=== PATIENT | female | born 1940 | race Caucasian/White ===

== ENCOUNTER 2016-08-03 23:59 | Inpatient (IN) | payer MEDICARE, OTHER ==
--- NOTE | ~2016-08-03 | CN ---
Consultation Report [facility] [address] [place]. [address] NAME: LIANA BRYANT : 42 STATUS : ADM IN PAT#: [id number] AGE: 76 ADM/REG DATE : 08/04/16 MR#: [id number] REPORT SERV DATE: 08/05/16 DICTATED BY: ALBARO SALAS DATE: 08/05/16 REPORT STATUS : Draft TRANSCRIBED BY: CHIQUI DATE: 08/05/16 CONSULTATION DATE OF CONSULTATION: REASON FOR CONSULTATION: Mrs. Liana Bryant is a 76-year-old female, who is referred for abnormal EKG and left ventricular dysfunction. CVD PHYSICIAN: Harman Carter M.D. HISTORY OF PRESENT ILLNESS: Mrs. Liana Bryant several days ago noted she was more short of breath. This is not accompanied with weight change or lower extremity edema. She also had significant back pain which also appears to be a main reason for discomfort. She called her niece, and they brought her to the emergency room. At the present time, she is laying flat with no complaints and no shortness of breath. REVIEW OF SYSTEMS: During this time, she has had no chest pain or chest discomfort. She has had no palpitations, syncope, or presyncope. She is in no change in weight. She has no AICD discharges. Rest is negative. PAST MEDICAL HISTORY: 1. Status post AICD placement. 2. Nonischemic cardiomyopathy with known coronary artery disease on cardiac catheterization in 2005. At that time, ejection fraction was catheter was calculated 20%. Recent echocardiogram shows calculated ejection fraction of 30%, but with wall motion abnormalities. 3. Paroxysmal atrial fibrillation, not on anticoagulation secondary to history of bleed requiring transfusion. 4. Hypertension, longstanding. 5. Carotid artery stenosis, followed by Dr. Ruelas with a stent placed in 2012. SOCIAL HISTORY: She has a strong family support. She lives in [facility] and has several nieces and nephews to take care of her. She does not drink or smoke. FAMILY HISTORY: Negative for early heart disease. PHYSICAL EXAMINATION: VITAL SIGNS: Blood pressure is 146/72 and pulse is 82. GENERAL: She is resting comfortably at this time. Nutritional status appears adequate. EYES: PERRLA. LUNGS: No labored use of accessory muscles. Without rales or wheezes. COR: PMI is not displaced. No thrills or heaves. NL S1 and S2. No S3, murmur, click or rub. Consultation Report [facility] [address] [place]. [address] NAME: LIANA BRYANT : 42 STATUS : ADM IN PAT#: [id number] AGE: 76 ADM/REG DATE : 08/04/16 MR#: [id number] REPORT SERV DATE: 08/05/16 DICTATED BY: ALBARO SALAS DATE: 08/05/16 REPORT STATUS : Draft TRANSCRIBED BY: CHIQUI DATE: 08/05/16 PULSES: Carotids without bruits. ABD: +BS, nontender. EXT: No cyanosis, clubbing or edema. SKIN: No petechiae. NEURO: Alert and oriented. Does not appear anxious or depressed. LABORATORY EVALUATION: Troponin is 0.04. BNP is mildly elevated at 760 on admission. Renal function is normal at 0.3. Potassium is balanced at 3.8. Hematocrit is balanced at 33. EKG shows LVH with repolarization abnormalities. ASSESSMENT: 1. EKG changes consistent with left ventricle hypertrophy without evidence of chest pain or chest discomfort. We would follow serially. 2. Nonischemic cardiomyopathy. No evidence of ongoing ischemia at this time. We would follow clinically. For general notation, she appears cachectic with significant weight loss. 3. Left ventricular dysfunction, currently compensated. LENIN/CHIQUI Albaro Salas M.D. / [id number] CC: Elie Mitchell II, MD NONE
--- NOTE | ~2016-08-03 | HP ---
History And Physical [facility] [address] [place]. [address] NAME: BERTHA BRYANT : 42 STATUS : REG ER PAT#: [id number] AGE: 76 ADM/REG DATE : 08/03/16 MR#: [id number] REPORT SERV DATE: 08/04/16 DICTATED BY: SASCHA PORTILLO DATE: 08/04/16 REPORT STATUS : Draft TRANSCRIBED BY: MODL DATE: 08/04/16 DATE OF ADMISSION: 08/03/2016 POINT OF ENTRY: [facility] Emergency Department. PRIMARY CARE PHYSICIAN: Marcos Nath M.D. CHIEF COMPLAINT: Shortness of breath. HISTORY OF PRESENT ILLNESS: Ms Bryant is a 76-year-old female with a history of chronic systolic congestive heart failure with an ejection fraction of 45%, chronic hyponatremia, atrial fibrillation on anticoagulation, and other medical comorbidities, who was brought to the emergency room today by EMS for reports of shortness of breath. Unfortunately, the patient is a very poor historian secondary to either underlying dementia or altered mental status, and no family is available at bedside. I was unable to reach any family members using the phone numbers provided in [employer]. According to the ER physician as well as EMS history, EMS was activated for two-hour history of shortness of breath. The patient currently denies any complaints including chest pain, palpitations, shortness of breath, abdominal pain, nausea, vomiting, or diarrhea. Initial evaluation in the emergency department is notable for a chest x-ray that showed some intravascular volume overload with very small bilateral pleural effusions. BNP was elevated at 760. Remainder of labs were unremarkable except for urinalysis concerning for possible urinary tract infection. She was given a dose of Lasix as well as IV Rocephin and admitted to the Hospitalist Service. REVIEW OF SYSTEMS: Comprehensive review of systems unable to be obtained secondary to the patient's altered mental status. PREVIOUS MEDICAL HISTORY: 1. Chronic systolic congestive heart failure with an ejection fraction of 45%. 2. Chronic hyponatremia. 3. Peripheral arterial disease. 4. Atrial fibrillation, on anticoagulation. 5. Pacemaker insertion. 6. History of stroke. PAST SURGICAL HISTORY: 1. Left hip ORIF. 2. Pacemaker AICD insertion. ALLERGIES: TO MORPHINE. HOME MEDICATIONS: History And Physical [facility] [id number] [place]. [address] NAME: BERTHA BRYANT : 42 STATUS : REG ER PAT#: [id number] AGE: 76 ADM/REG DATE : 08/03/16 MR#: [id number] REPORT SERV DATE: 08/04/16 DICTATED BY: SASCHA PORTILLO DATE: 08/04/16 REPORT STATUS : Draft TRANSCRIBED BY: MODElie DATE: 08/04/16 1. Aspirin 81 mg daily. 2. Atorvastatin 40 mg daily. 3. Carvedilol 3.125 mg b.i.d. 4. Lisinopril 20 mg daily. SOCIAL HISTORY: Denies any tobacco, alcohol, or illicits. It is unclear as to who the patient lives with at this time. FAMILY HISTORY: Notable for stroke. LABS AND IMAGIN. White count is 8.9, hemoglobin is 12.6, hematocrit is 36.3, platelet count is 237, and INR 1.2. 2. Sodium is 128, potassium 4.4, chloride 95, carbon dioxide 27, BUN 14, creatinine 0.30, glucose is 100, calcium is 9.3, and magnesium is 2.0. 3. Troponin is 0.04. BNP is 760. 4. Urinalysis: Spec gravity is 1.017, cloudy with 3 red blood cells with 95 red blood cells per high-power field with 10 epithelial cells, but negative nitrites and negative leukocyte esterase. 5. Chest x-ray per my review shows some cardiomegaly as well as mild intravascular volume overload. 6. EKG per my review shows normal sinus rhythm with occasional PVCs, otherwise no evidence of any acute ischemia or infarction. PHYSICAL EXAMINATION: VITAL SIGNS: Temperature is 97.9 degrees Fahrenheit, pulse is 93, respirations 16, saturating 92% on room air, and blood pressure 159/85. GENERAL: The patient is awake and alert, in no acute distress. Resting comfortably in bed. She is a well-developed, well-nourished elderly female. No family is at bedside. She strongly reeks of urine. HEENT: Atraumatic and normocephalic. Moist mucous membranes. Pupils are equal, round, reactive to light and accommodation. Extraocular eye movements intact. No scleral icterus. NECK: No jugular venous distention. No carotid bruits. CARDIAC: Regular rate and rhythm. No murmurs, rubs, or gallops. Normal S1, S2. LUNGS: Decreased breath sounds in the bases as well as some mild inspiratory rales. ABDOMEN: Soft, nontender, and nondistended with good bowel sounds. No rebound, guarding, or rigidity. EXTREMITIES: Warm and well perfused. No cyanosis, clubbing, or edema. SKIN: Warm and dry. PSYCH: Affect appropriate. NEURO: Alert and oriented x2. She is able to tell me her name as well as location, and she is just slightly off on dates. Cranial nerves 2 through 12 grossly intact. Speech is normal. Gait not assessed. ASSESSMENT AND PLAN: Ms Bryant is a 76-year-old female, who is transferred here for shortness of breath, and found to have evidence of some intravascular volume overload as well as hyponatremia as well as altered mental status and urinary tract infection. History And Physical [address] [address] NAME: BERTHA BRYANT : 42 STATUS : REG ER PAT#: [id number] AGE: 76 ADM/REG DATE : 08/03/16 MR#: [id number] REPORT SERV DATE: 08/04/16 DICTATED BY: SASCHA PORTILLO DATE: 08/04/16 REPORT STATUS : Draft TRANSCRIBED BY: CHIQUI DATE: 08/04/16 PROBLEM LIST: 1. Acute on chronic systolic congestive heart failure. 2. Hyponatremia. 3. Altered mental status. 4. Urinary tract infection. PLAN: 1. Acute on chronic systolic congestive heart failure. The patient's last known echocardiogram is from 2013, which showed mildly impaired LV systolic function. We will place the patient on fluid and sodium restriction as well as IV Lasix for gentle diuresis. 2. Chronic hyponatremia, this is likely due to either SIADH or volume overload from the patient's history of congestive heart failure. We will check urine lytes, serum osms, provide fluid restriction as well as IV Lasix diuresis. 3. Altered mental status likely secondary to hyponatremia as well as urinary tract infection. We are checking other etiologies as well as ammonia level, thyroid function studies, urine drug screen, and vitamin B12 level. 4. Urinary tract infection. The patient does have significant pyuria in her urine sample; however, nitrite and leukocyte esterase was negative, and it was not completely clean catch. We will empirically place the patient on antibiotics and follow up results of urine culture. 5. DVT prophylaxis. Lovenox subcu. CODE STATUS: The patient wished to be full code. RANDY/CHIQUI Sascha Portillo MD / [id number] CC: Marcos Nath M.D.
--- NOTE | ~2016-08-03 | DS ---
Discharge Summary [facility] [address] [place]. [address] NAME: BERTHA BRYANT : 42 STATUS : DIS IN PAT#: [id number] AGE: 76 ADM/REG DATE : 08/04/16 MR#: [id number] REPORT SERV DATE: 08/08/16 DICTATED BY: SASCHA HERNÁNDEZ II DATE: 08/07/16 REPORT STATUS : Draft TRANSCRIBED BY: MODL DATE: 08/07/16 ADMISSION DATE: 08/03/2016 DISCHARGE DATE: 08/07/2016 DISCHARGE DIAGNOSES: 1. Acute on chronic systolic congestive heart failure with ejection fraction of 30%. 2. Urinary tract infection. 3. Hyponatremia, which is chronic. 4. Paroxysmal atrial fibrillation. 5. Severe protein-calorie malnutrition. 6. History of permanent pacemaker. 7. History of stroke. 8. History of peripheral vascular disease. CONSULTS: Harman Carter M.D., with [facility]. BRIEF HISTORY OF PRESENT ILLNESS: The patient is a 76-year-old female with the above history, who presented to [facility] due to shortness of breath and found to be in acute CHF exacerbation. For detailed history and physical examination, please see Dr. Ellison's note from 08/03/2016. HOSPITAL COURSE: On admission, the patient had a BNP of 760, and ABG showed pH of 7.45, pCO2 of 30, PO2 of 78. Chest x-ray showed cardiomegaly with left lung base atelectasis. She also had UTI with a white blood cell count in her urine of 95 and mildly hyponatremic with a sodium of 128 and some slight confusion. For CHF exacerbation she was diuresed and an echocardiogram was done which showed moderately decreased LV systolic function with estimated LVEF of 30% which is decreased from her prior echo of 45%. There is also severe distal anterior and apical hypokinesis which is worsened. Otherwise moderate diastolic dysfunction and moderate pulmonary hypertension were noted. Her EKG also showed some T-wave inversions and mild maybe [address] depressions in the anterolateral leads with a normal troponin and no chest pain. Given her decrease in EF and EKG changes Cardiology was consulted. Dr. Carter evaluated the patient. Given her overall poor physical status, malnutrition, comorbidities and age it was decided to treat her medically. Also the fact that she had a GI bleed and was taken off anticoagulation earlier in the year affected that decision. She had normal coronaries and nonischemic cardiomyopathy in 2005, so Dr. Carter medically optimized the patient by decreasing her amlodipine and increasing her Coreg. She continues on her lisinopril, daily aspirin, and Lasix 20 mg b.i.d. was started. Her urine culture returned positive with E. coli which is pansensitive. She has had four days of Rocephin and will continue for a seven-day course. Regarding her sodium she has been on a fluid restriction and diuresing, and her sodium has actually not moved too much, went up to 130 and back down to 126 which is known to be chronic hyponatremia in her. Dr. Carter has recommended home health heart failure protocol, which has been initiated. At this point, the patient is stable tolerating her medications and ready for discharge. DISCHARGE MEDICATIONS: 1. Aspirin 81 mg p.o. daily. Discharge Summary [address] [address] NAME: BERTHA BRYANT : 42 STATUS : DIS IN PAT#: [id number] AGE: 76 ADM/REG DATE : 08/04/16 MR#: [id number] REPORT SERV DATE: 08/08/16 DICTATED BY: SASCHA HERNÁNDEZ II DATE: 08/07/16 REPORT STATUS : Draft TRANSCRIBED BY: CHIQUI DATE: 08/07/16 2. Lipitor 40 mg p.o. q.h.s. 3. Coreg 6.25 mg p.o. b.i.d. 4. Ferrous sulfate 325 mg p.o. t.i.d. 5. Lisinopril 20 mg p.o. daily. 6. Lasix 20 mg p.o. b.i.d. 7. Protonix 40 mg p.o. daily. 8. Potassium 20 mEq p.o. daily. 9. Duricef 1 g p.o. b.i.d. x3 days. DISCHARGE INSTRUCTIONS: The patient will follow up with Dr. Carter in three to four weeks. DICTATED BY: MD ASUNCION Hugo II/CHIQUI Sascha Hernández II, MD / [id number] CC: Sascha Hernández II, MD
[~2016-08-03 23:59] MED LIST: *UNABLE3; ALEVE220 MG PO; ASAB PO; BISR PO; C5 PO; CAP50 PO; CEFT5 PO; COREG25 PO; COREG3 PO; COUMADIN4 MG PO; DIGITEK0.25 MG PO; DSS PO; ENEMA PR; FERROUS SULF325 M1 PO; KLOR-CON M2020 MEQ PO; L40 PO; LAN125 PO; MOMUD PO; MOTRIN IB200 MG PO; MULTIVIT/MIN PO; MULTIVITAMI1 PO; NORV5 PO; PLAVIX PO; PRIN20 PO; PROTONIX PO; SPIRO25 PO; ULTRAM50 PO; VITC500 PO; ZOCOR20 PO; ZOCOR40 PO
[2016-08-04 00:10] LABS: BASOPHILS 0 %; EOSINOPHILS 0.4 %; EOSINOPHILS ABSOLUTE 0.04 10/3/uL (0.0-0.53); IMMATURE GRANULOCYTES 0.3 %; IMMATURE GRANULOCYTES ABSOLUTE 0.03 10/3/uL (0.0-0.11); LYMPHOCYTES 7.4 %; LYMPHOCYTES ABSOLUTE 0.66 10/3/uL (0.67-4.30); MEAN CORPUS HGB CONC 34.7 g/dL (32.0-36.0); MEAN CORPUSCULAR HEMOGLOB 30.1 pg (26.0-34.0); MEAN PLATELET VOLUME 8.9 fL (9.2-13.0); MONOCYTES 7.8 %; NEUTROPHILS 84.1 %; NEUTROPHILS ABSOLUTE 7.49 10/3/uL (2.02-8.40); PLATELET COUNT 237 10/3/uL (150-400); RED CELL COUNT 4.19 10/6/uL (4.0-5.6)
[2016-08-04 00:11] LABS: ER CBC TAT 0 Hrs 00 Mins; HEMATOCRIT 36.3 % (36.0-48.0); HEMOGLOBIN 12.6 g/dL (12.0-16.0); MANUAL DIFF NO %; MEAN CORPUSCULAR VOLUME 86.6 fL (80-100); RBC DISTRIBUTION WIDTH 12.8 % (12.0-16.0); WHITE BLOOD CELLS 8.9 10/3/uL (4.5-10.5)
[2016-08-04 00:31] LABS: CALCIUM, SERUM 9.2 MG/DL (8.5-10.4); CHEST PAIN PROFILE TAT 0 Hrs 00 Mins; CHLORIDE, SERUM 95 MMOL/L (96-112); CO2 (CARBON DIOXIDE) 27 MMOL/L (24-34); GFR AFRICAN AMERICAN 130 ML/MIN (>=60); GFR NON AFRICAN AMERICAN 112 ML/MIN (>=60); GLUCOSE, SERUM 100 MG/DL (60-99); POTASSIUM, SERUM 4.4 MMOL/L (3.5-5.3); SODIUM, SERUM 128 MMOL/L (135-148); TROPONIN I 0.04 NG/ML (<0.05)
[2016-08-04 00:32] LABS: BUN (BLOOD UREA NITROGEN) 14 MG/DL (6-23)
[2016-08-04 01:40] LABS: INTERNATIONAL NORMAL RATI 1.2 UNITS (-); PARTIAL THROMBO TIME 30.8 SEC (22.5-37.2); PROTIME (NOT ORD) 14.8 SEC (12.0-14.5)
[2016-08-04 01:44] LABS: BE (BASE EXCESS) -0.6 MEQ/L (0 +/- 2.5); HCO3 (ACTUAL BICARBONATE) 22.4 MEQ/L (23-27); INSTRUMENT SERIAL # 8087; OPERATOR ID 33449; PCO2 (CO2 TENSION) 33 MMHG (35-45); PO2 (O2 TENSION) 78 MMHG (79-93); SAMPLE Arterial; pH 7.45 (7.37-7.43)
[2016-08-04 01:57] LABS: ASCORBIC ACID (UR NOT ORDER) 20 (NEG); BILIRUBIN, URINE NEGATIVE (NEG); ER URINALYSIS TAT 0 Hrs 14 Mins; KETONE, URINE 20 MG/DL (NEG); LEUKOCYTE ESTERASE(NOT OR NEG (NEG); NITRITE (URINE) NEG (NEG); WBC (NOT ORDERED) (RFLEX) 95 (0-5)
[2016-08-04 08:03] LABS: BASOPHILS 0.1 %; BASOPHILS ABSOLUTE 0.01 10/3/uL (0.0-0.16); EOSINOPHILS 0.5 %; EOSINOPHILS ABSOLUTE 0.04 10/3/uL (0.0-0.53); HEMATOCRIT 37.1 % (36.0-48.0); HEMOGLOBIN 12.6 g/dL (12.0-16.0); IMMATURE GRANULOCYTES 0.1 %; IMMATURE GRANULOCYTES ABSOLUTE 0.01 10/3/uL (0.0-0.11); LYMPHOCYTES 12.9 %; LYMPHOCYTES ABSOLUTE 0.98 10/3/uL (0.67-4.30); MEAN CORPUSCULAR HEMOGLOB 29.6 pg (26.0-34.0); MEAN CORPUSCULAR VOLUME 87.1 fL (80-100); MEAN PLATELET VOLUME 8.9 fL (9.2-13.0); MONOCYTES 9.2 %; NEUTROPHILS 77.2 %; NEUTROPHILS ABSOLUTE 5.83 10/3/uL (2.02-8.40); PLATELET COUNT 236 10/3/uL (150-400); RBC DISTRIBUTION WIDTH 12.9 % (12.0-16.0); RED CELL COUNT 4.26 10/6/uL (4.0-5.6); WHITE BLOOD CELLS 7.6 10/3/uL (4.5-10.5)
[2016-08-04 08:07] LABS: MANUAL DIFF NO %
[2016-08-04 08:19] LABS: AMMONIA 22 UMOL/L (11-32)
[2016-08-04 08:42] LABS: BUN (BLOOD UREA NITROGEN) 13 MG/DL (6-23); CALCIUM, SERUM 8.8 MG/DL (8.5-10.4); CHLORIDE, SERUM 96 MMOL/L (96-112); CO2 (CARBON DIOXIDE) 30 MMOL/L (24-34); CREATININE 0.41 MG/DL (0.55-1.02); FOLATE 14.7 NG/ML (>5.2); FREE T4 1.26 NG/DL (0.76-1.46); GFR AFRICAN AMERICAN 117 ML/MIN (>=60); GFR NON AFRICAN AMERICAN 101 ML/MIN (>=60); GLUCOSE, SERUM 83 MG/DL (60-99); POTASSIUM, SERUM 3.9 MMOL/L (3.5-5.3); SODIUM, SERUM 129 MMOL/L (135-148)
[2016-08-04] MEDS ORDERED: COREG3 PO (12:29)
[2016-08-04] MEDS ORDERED: ASAB PO (12:29)
[2016-08-04] MEDS ORDERED: *UNABLE1 (12:29)
[2016-08-04] MEDS ORDERED: PRIN20 PO (12:29)
[2016-08-04] MEDS ORDERED: LIPITOR40 PO (12:29)
[2016-08-04] MEDS ORDERED: KDUR20 PO (13:01)
[2016-08-04] MEDS ORDERED: PROTONIX PO (13:01)
[2016-08-04] MEDS ORDERED: NORV5 PO (13:01)
[2016-08-04] MEDS ORDERED: FERROUS SULF325 M1 PO (13:01)
[2016-08-05 04:59] LABS: AMPHETAMINES (NOT ORD) NEG (NEG); BARBITURATES (NOT ORDERED NEG (NEG); BENZODIAZEPINES (NOT ORD) NEG (NEG); CANNABINOIDS (THC) NEG (NEG); COCAINE (NOT ORDERED) NEG (NEG); OPIATES NEG (NEG); PHENCYCLIDINE(PCP) NEG (NEG); TRICYCLICS NEG (NEG)
[2016-08-05 05:02] LABS: BASOPHILS 0 %; EOSINOPHILS 3.7 %; EOSINOPHILS ABSOLUTE 0.22 10/3/uL (0.0-0.53); HEMOGLOBIN 11.5 g/dL (12.0-16.0); IMMATURE GRANULOCYTES 0.2 %; IMMATURE GRANULOCYTES ABSOLUTE 0.01 10/3/uL (0.0-0.11); LYMPHOCYTES 15.9 %; LYMPHOCYTES ABSOLUTE 0.94 10/3/uL (0.67-4.30); MEAN CORPUS HGB CONC 34.7 g/dL (32.0-36.0); MEAN CORPUSCULAR HEMOGLOB 30.3 pg (26.0-34.0); MEAN CORPUSCULAR VOLUME 87.1 fL (80-100); MEAN PLATELET VOLUME 8.9 fL (9.2-13.0); MONOCYTES 13.9 %; MONOCYTES ABSOLUTE 0.82 10/3/uL (0.21-1.20); NEUTROPHILS 66.3 %; NEUTROPHILS ABSOLUTE 3.92 10/3/uL (2.02-8.40); PLATELET COUNT 209 10/3/uL (150-400); WHITE BLOOD CELLS 5.9 10/3/uL (4.5-10.5)
[2016-08-05 05:06] LABS: HEMATOCRIT 33.1 % (36.0-48.0); MANUAL DIFF NO %
[2016-08-05 05:12] LABS: BUN (BLOOD UREA NITROGEN) 12 MG/DL (6-23); CALCIUM, SERUM 8.3 MG/DL (8.5-10.4); CHLORIDE, SERUM 94 MMOL/L (96-112); CO2 (CARBON DIOXIDE) 28 MMOL/L (24-34); CREATININE 0.32 MG/DL (0.55-1.02); GFR AFRICAN AMERICAN 127 ML/MIN (>=60); GFR NON AFRICAN AMERICAN 110 ML/MIN (>=60); GLUCOSE, SERUM 76 MG/DL (60-99); POTASSIUM, SERUM 3.8 MMOL/L (3.5-5.3); SODIUM, SERUM 130 MMOL/L (135-148)
[2016-08-06 06:25] LABS: BUN (BLOOD UREA NITROGEN) 13 MG/DL (6-23); CHLORIDE, SERUM 93 MMOL/L (96-112); CO2 (CARBON DIOXIDE) 28 MMOL/L (24-34); CREATININE 0.31 MG/DL (0.55-1.02); GFR AFRICAN AMERICAN 128 ML/MIN (>=60); GFR NON AFRICAN AMERICAN 111 ML/MIN (>=60); GLUCOSE, SERUM 79 MG/DL (60-99); POTASSIUM, SERUM 4.2 MMOL/L (3.5-5.3); SODIUM, SERUM 126 MMOL/L (135-148)
[2016-08-07 06:54] LABS: BUN (BLOOD UREA NITROGEN) 13 MG/DL (6-23); CALCIUM, SERUM 8.5 MG/DL (8.5-10.4); CHLORIDE, SERUM 93 MMOL/L (96-112); CO2 (CARBON DIOXIDE) 27 MMOL/L (24-34); CREATININE 0.32 MG/DL (0.55-1.02); GFR AFRICAN AMERICAN 127 ML/MIN (>=60); GFR NON AFRICAN AMERICAN 110 ML/MIN (>=60); GLUCOSE, SERUM 76 MG/DL (60-99); POTASSIUM, SERUM 4.5 MMOL/L (3.5-5.3); SODIUM, SERUM 126 MMOL/L (135-148)
[2016-08-07] MEDS ORDERED: CEFADROXIL1 GM PO (13:27)
[2016-08-07] MEDS ORDERED: COREG6 PO (13:28)
[2016-08-07] MEDS ORDERED: L20 PO (13:38)
[2016-11-05] MEDS ORDERED: MAXIMUM D3 PO (20:43)
[2016-11-05] MEDS ORDERED: SODCLTAB PO (20:43)
[2016-11-05] MEDS ORDERED: ARICEPT5 PO (20:43)
[2016-11-05] MEDS ORDERED: PRIN10 PO (20:44)
== END 2016-08-07 14:42 | disposition home or self-care (01) | DRG 291 ==
LOC: ER 23:59 → 2SO 08-04 06:45
PROVIDERS: Internal Medicine; Nurse Practitioner Acute Care
DX: I50.43 Acute on chronic combined systolic (congestive) and diastolic (congestive) heart failure (principal); E43 Unspecified severe protein-calorie malnutrition; N39.0 Urinary tract infection, site not specified; I73.9 Peripheral vascular disease, unspecified; I48.0 Paroxysmal atrial fibrillation; Z79.01 Long term (current) use of anticoagulants; E87.1 Hypo-osmolality and hyponatremia; R41.82 Altered mental status, unspecified; I49.3 Ventricular premature depolarization; I47.9 Paroxysmal tachycardia, unspecified; Z86.73 Personal history of transient ischemic attack (TIA), and cerebral infarction without residual deficits; Z98.890 Other specified postprocedural states; Z95.810 Presence of automatic (implantable) cardiac defibrillator; Z88.5 Allergy status to narcotic agent
CPT/HCPCS: 36600; 71010; 80048; 80305; 81001; 82140; 82330; 82607; 82746; 82803; 82805; 82947; 83735; 83880; 83930; 84132; 84295; 84439; 84443; 84484; 85014; 85025; 85610; 85730; 87077; 87086; 87186; 93005; 93306; 96374; 96375; 97110-GP; 97116-GP; 97161-GP; 99285; A9270-GY; G8978-CK-GP; G8979-CJ-GP; J1940

== ENCOUNTER 2016-08-11 18:37 | Emergency (ER) | payer MEDICARE, OTHER ==
[2016-08-11 17:48] LABS: BASOPHILS 0.2 %; BASOPHILS ABSOLUTE 0.01 10/3/uL (0.0-0.16); EOSINOPHILS 2.8 %; EOSINOPHILS ABSOLUTE 0.14 10/3/uL (0.0-0.53); ER CBC TAT 0 Hrs 08 Mins; HEMATOCRIT 34.4 % (36.0-48.0); HEMOGLOBIN 11.7 g/dL (12.0-16.0); IMMATURE GRANULOCYTES 0.2 %; IMMATURE GRANULOCYTES ABSOLUTE 0.01 10/3/uL (0.0-0.11); LYMPHOCYTES 12.6 %; LYMPHOCYTES ABSOLUTE 0.64 10/3/uL (0.67-4.30); MEAN CORPUSCULAR HEMOGLOB 29.6 pg (26.0-34.0); MEAN CORPUSCULAR VOLUME 87.1 fL (80-100); MONOCYTES ABSOLUTE 0.46 10/3/uL (0.21-1.20); NEUTROPHILS 75.2 %; NEUTROPHILS ABSOLUTE 3.83 10/3/uL (2.02-8.40); PLATELET COUNT 225 10/3/uL (150-400); RBC DISTRIBUTION WIDTH 13.2 % (12.0-16.0); RED CELL COUNT 3.95 10/6/uL (4.0-5.6); WHITE BLOOD CELLS 5.1 10/3/uL (4.5-10.5)
[2016-08-11 17:49] LABS: MANUAL DIFF NO %
[2016-08-11 17:55] LABS: INTERNATIONAL NORMAL RATI 1.1 UNITS (-); PARTIAL THROMBO TIME 30.4 SEC (22.5-37.2); PROTIME (NOT ORD) 14.1 SEC (12.0-14.5)
[2016-08-11 18:32] LABS: ASCORBIC ACID (UR NOT ORDER) NEG (NEG); BILIRUBIN, URINE NEGATIVE (NEG); ER URINALYSIS TAT 0 Hrs 19 Mins; KETONE, URINE NEGATIVE (NEG); LEUKOCYTE ESTERASE(NOT OR TRACE (NEG); NITRITE (URINE) NEG (NEG); WBC (NOT ORDERED) (RFLEX) 20 (0-5)
[2016-08-11 18:34] LABS: BUN (BLOOD UREA NITROGEN) 16 MG/DL (6-23); CALCIUM, SERUM 8.5 MG/DL (8.5-10.4); CHEST PAIN PROFILE TAT 0 Hrs 20 Mins; CHLORIDE, SERUM 97 MMOL/L (96-112); CO2 (CARBON DIOXIDE) 27 MMOL/L (24-34); CREATININE 0.42 MG/DL (0.55-1.02); GFR AFRICAN AMERICAN 116 ML/MIN (>=60); GFR NON AFRICAN AMERICAN 100 ML/MIN (>=60); POTASSIUM, SERUM 3.7 MMOL/L (3.5-5.3); SODIUM, SERUM 124 MMOL/L (135-148); TROPONIN I 0.02 NG/ML (<0.05)
[2016-08-11 18:36] LABS: GLUCOSE, SERUM 114 MG/DL (60-99)
[~2016-08-11 18:37] MED LIST changes: +*UNABLE1; +CEFADROXIL1 GM PO; +COREG6 PO; +KDUR20 PO; +L20 PO; +LIPITOR40 PO
[2016-11-05] MEDS ORDERED: MAXIMUM D3 PO (20:43)
[2016-11-05] MEDS ORDERED: ARICEPT5 PO (20:43)
[2016-11-05] MEDS ORDERED: SODCLTAB PO (20:43)
[2016-11-05] MEDS ORDERED: PRIN10 PO (20:44)
== END 2016-08-11 20:08 | disposition home or self-care (01) ==
LOC: ER 18:37
PROVIDERS: Hospitalist
DX: N39.0 Urinary tract infection, site not specified (principal); F03.90 Unspecified dementia, unspecified severity, without behavioral disturbance, psychotic disturbance, mood disturbance, and anxiety; I95.89 Other hypotension; E87.1 Hypo-osmolality and hyponatremia; I48.91 Unspecified atrial fibrillation; I50.9 Heart failure, unspecified; Z95.0 Presence of cardiac pacemaker; Z88.5 Allergy status to narcotic agent; Z79.82 Long term (current) use of aspirin
CPT/HCPCS: 71010; 80048; 81001; 83735; 84484; 85025; 85610; 85730; 93005; 99284